=== PATIENT | female | born 1945 | race Two or more races ===

== ENCOUNTER 2021-08-07 23:00 | Emergency (ER) | payer OTHER ==
[~2021-08-07] VITALS: Ht 154.9 cm; Wt 68.0 kg
[2021-08-07] MEDS ORDERED: METFORMIN HCL500 M3 (23:24)
[2021-08-08] MEDS ORDERED: CEPHALEXIN500 MG PO (02:41)
== END 2021-08-08 03:29 | disposition home or self-care (01) ==
LOC: ER 23:00
DX: S01.02XA Laceration with foreign body of scalp, initial encounter (principal); M54.2 Cervicalgia; W01.198A Fall on same level from slipping, tripping and stumbling with subsequent striking against other object, initial encounter; Y93.89 Activity, other specified; Y92.59 Other trade areas as the place of occurrence of the external cause; Y99.8 Other external cause status